=== PATIENT | male | born 1980 | race Caucasian/White ===

== ENCOUNTER 2018-05-26 05:20 | Emergency (ER) | payer MEDICAID, SELFPAY ==
[2018-05-26 05:21] VITALS: BP 134/92; PULSE 80; RESP 24; TEMP 36.8; O2SAT 98; BMI 26.6
--- NOTE | 2018-05-26 05:39 | ED.DCSUM_ITS ---
- ER Visit Summary Date of Service: 05/26/18 Chief Complaint: Sore throat History of Present Illness: The patient is a 38 M who presents with a sore throat. He woke up with a sore throat 30 minutes ago. He has had sick contacts with mononucleosis. He also complains of 30 minutes of congestion rhinorrhea and cough. No fevers. No vomiting or diarrhea. Physical Examination: Afebrile vitals are normal Posterior oropharyngeal erythema without tonsillar enlargement asymmetry or exudate, the uvula is midline Neck is supple without tender lymphadenopathy Tympanic membranes are normal Heart regular rate and rhythm Lungs clear Test Results: Not indicated Emergency Department Course and Treatment: History and presentation are consistent with a viral pharyngitis. Patient was given ibuprofen and instructed on supportive care. Treatment Plan: [] Disposition: Discharge Impression: Pharyngitis This note was generated with [employer] dictation software. It may contain incorrect words, spelling, and punctuation that were not noted in review of the chart prior to signing ED Disposition - Plan for ED Patient: Chief Complaint: Sore Throat Referrals: Anum Kahn [Primary Care Provider] -
--- NOTE | 2018-05-26 05:39 | ED.DEP ---
ED Disposition - Plan for ED Patient: Chief Complaint: Sore Throat Instructions: ED Pharyngitis Viral Referrals: Anum Kahn [Primary Care Provider] -
[2018-05-26] MEDS: Ibuprofen 400 MG Tablet 800 MG PO (05:49)
[2018-05-26 05:50] VITALS: RESP 16
== END 2018-05-26 05:51 | disposition home or self-care (01) ==
LOC: ED 05:46
PROVIDERS: Emergency Provider Emergency Medicine
DX: J02.9 Acute pharyngitis, unspecified (principal); Z72.0 Tobacco use
CPT/HCPCS: 99283

== ENCOUNTER 2018-12-07 08:48 | Emergency (ER) | payer OTHER, MEDICAID, SELFPAY ==
[2018-12-07 08:50] VITALS: BP 144/88; PULSE 73; RESP 18; TEMP 36.6; O2SAT 98; BMI 27.3
--- NOTE | 2018-12-07 09:15 | ED.VISSUMM ---
- ER Visit Summary Date of Service: 12/07/18 Chief Complaint: Left shoulder injury History of Present Illness: The patient is a 38 M hand dominant. No dyspnea past medical or surgical history. 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 And injured his left shoulder. Said this occurred approximately 6 days ago. Around last Thursday. He denies any fall. No other trauma. He is right-hand dominant. He is never had any surgery or prior history to his left shoulder. He states they put him on light duty but he still having significant pain in the shoulder. Denies any fever or redness. Physical Examination: Well-appearing young male. Vital signs are stable. Afebrile. No acute distress. H EENT exam unremarkable. Neck nontender. Lungs clear to auscultation bilaterally. Heart regular rate and rhythm no murmur. Chest wall nontender. Abdomen soft nontender. Normal bowel sounds no peritoneal signs. Extremities moving all 4. Neurovascularly intact. Specifically he has mild pain to palpation of the shoulder primarily of the posterior shoulder musculature in the upper back. Consistent with a myofascial strain. There is no gross bony deformity. There is no redness, warmth or swelling to the left shoulder. He has normal range of motion to the left shoulder. Including AB and adduction. Internal and external rotation. Elbow has normal range of motion of flexion-extension. Is nonswollen nontender. Left wrist is nonswollen and nontender with normal range of motion. 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 Normal sensation. Normal radial pulse. Normal motor strength of the left upper extremity. Test Results: None Emergency Department Course and Treatment: I discussed with the patient that plain films would not be of any benefit. He does not have a dislocation. There is no reason to believe he has a broken bone in his shoulder joint. His exam and history are consistent with a myofascial strain. However this is not improving he would need further evaluation to rule out any type of internal derangement and may or may not need an MRI Treatment Plan: Naprosyn for pain. Ice. Rest. Continue light duty. Follow-up with [facility] Disposition: Discharge Impression: Acute left shoulder injury at work and consistent with left shoulder strain Worker's Comp. This note was generated with Dragon dictation software. It may contain incorrect words, spelling, and punctuation that were not noted in review of the chart prior to signing ED Disposition - Plan for ED Patient: Chief Complaint: Upper Extremity Injury Referrals: Care Physician,No Primary [Primary Care Provider] -
--- NOTE | 2018-12-07 09:19 | ED.DEP ---
ED Disposition - Plan for ED Patient: Disposition: Home or Assisted Living Chief Complaint: Upper Extremity Injury Instructions: ED Sprain Shoulder Prescriptions: Naproxen [Naprosyn] 500 mg PO BID PRN PRN #20 tab PRN Reason: Pain Referrals: [facility] [GROUP OF PHYSICIANS] - As soon as possible Additional Instructions: Ice to left shoulder. Rest and light duty. Naprosyn or Motrin for pain not both. Follow-up with [facility] if not improving. Your exam and history are consistent with a shoulder strain of the musculature. This is not improving you may need further evaluation.
== END 2018-12-07 09:31 | disposition home or self-care (01) ==
PROVIDERS: Emergency Provider Emergency Medicine
DX: S46.912A Strain of unspecified muscle, fascia and tendon at shoulder and upper arm level, left arm, initial encounter (principal); X58.XXXA Exposure to other specified factors, initial encounter; Y93.89 Activity, other specified; Y99.0 Civilian activity done for income or pay; Z72.0 Tobacco use
CPT/HCPCS: 99282

== ENCOUNTER → 2018-12-17 06:24 | Outpatient (CLI) | payer OTHER, SELFPAY ==
[2018-12-13 08:28] VITALS: BMI 27.3
--- NOTE | 2018-12-17 06:26 | MRI_ITS ---
STUDY: MRI LEFT SHOULDER REASON FOR EXAM: Left shoulder pain for 2 weeks status post lifting injury. TECHNIQUE: Standardized fat and water weighted pulse sequences were obtained in all 3 orthogonal planes. COMPARISON: None. FINDINGS: Normal supraspinatus tendon. Normal infraspinatus tendon. Normal subscapularis tendon. Normal teres minor tendon. Normal supraspinatus muscle. Normal infraspinatus muscle. Normal subscapularis muscle. Normal teres minor muscle. Normal glenohumeral articulation. Normal humeral head and visualized proximal humerus. Normal biceps labral complex. Normal intracapsular long biceps tendon. Normal labrum. Normal capsulo- ligamentous complex. Normal acromioclavicular articulation. There is a Type II morphology (curved), with a neutral orientation. There is no subacromial-subdeltoid bursal fluid. Normal visualized coracohumeral and coracoacromial ligaments. Normal deltoid muscle. Normal trapezius muscle. MRI/Upper Ext Joint Only(Routine) IMPRESSION: Normal MRI of the left shoulder. Electronically Signed: Shahbaz Zimmerman MD at 14:35 EST Tel , Service support ,
--- NOTE | 2018-12-17 06:55 | RAD_ITS ---
STUDY: X-RAY - ORBITS REASON FOR EXAM: Male, 38 years old. This study is being performed as a clearance examination for exclusion of orbital metal, prior to the performance of an MRI examination. TECHNIQUE: 2 view(s) of the orbits were obtained. COMPARISON: None. FINDINGS: Normal bilateral orbits without a metallic orbital foreign body. Normal visualized facial bones. Normal paranasal sinuses. The soft tissue structures are unremarkable. RAD/Orbits for Foreign Body IMPRESSION: No demonstrated metallic orbital foreign body. The patient is cleared for an MRI examination. Electronically Signed: Sumit Christian MD at 7:07 EST , Service support ,
--- OUTSIDE RECORDS SUMMARY | 2019-02-20 14:03 | XMS RPT_ITS ---
:1980 Author Organization OHIP Care Team Providers Name Role Phone Primay Care Physicia, No Primary Care Unavailable Bentley White Attending Unavailable Parveen Barboza Attending Unavailable Primay Care Physicia, No Referring Unavailable Parveen Barboza Attending Unavailable Parveen Barboza Referring Unavailable Primay Care Physicia, No Primary Care Unavailable Parveen Barboza Attending Unavailable Primay Care Physicia, No Referring Unavailable Jose Monae Attending Unavailable Primay Care Physicia, No Primary Care Unavailable PROBLEMS PROBLEMS No Problem Records FoundPROCEDURES PROCEDURES No Procedure Records FoundRESULTS RESULTS URGENT CARE VISIT Observed: 12/21/2018 Status: F Source: [place] RE[place] 10:27 AM [facility] REPOSITORY [facility] [address] [place] [address] OFFICE VISIT Date of Service: 12/21/18 MR#: [id number] Acct: [id number] Name: BRAD GABRIEL Rep #: [id number] : 1980 Provider: Parveen MILLER Age/Sex: 38/M Location: [facility] Status: Signed Intake Vital Signs12/21/18 Body Mass Index (BMI) 27.3 12/21/18 Height 5 ft 9 in 12/21/18 Weight: 161 lb 12/21/18 Body Mass Index (BMI) 23.8 12/21/18 Blood Pressure 134/82 H Intake Visit Reasons: Workers' Comp Px Chief Complaint: Left shoulder 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 Patient has been on restrictions due to left shoulder strain and has since received an MRI of the left shoulder. MRI revealed no abnormalities of the left shoulder. Patient states today that he continues to have an aching pain to the left shoulder and localizes it to the anterior of the same. He denies numbness/tingling or loss of range of motion to the left arm or shoulder. No other associated symptoms or alleviating/aggravating factors. ROS Const Constitutional: Positive for other (Full ROS completed with pertinent findings in the HPI otherwise negative.) Exam Const General: cooperative, healthy appearing Musc Musculoskeletal: Yes joint tenderness; no decreased ROM, joint redness or joint warmth Skin General: no rashes or lesions noted Neuro General: alert, CN's II-XI intact bilaterally Extrem General: full ROM, normal capillary refill, normal exam except as noted, no joint enlargement Other: Tenderness to palpation over the anterior left shoulder. Negative Apley scratch test or crossarm test. Psych Appearance: grossly normal Mental Status: mental status grossly normal Assessment AND Plan Problems 1. Strain of unspecified muscle, fascia and tendon at shoulder and upper arm level, left arm, initial encounter S46.082A Plan [employer] 14 filled out releasing patient back to work today with restrictions at the patient's request. Patient advised that he should start physical therapy as his MRI was negative. The form C9 has already been submitted for approval of this. Patient advised to continue with naproxen as prescribed previously as needed for pain as well as warm compress to the area. Patient advised to follow-up in this office on 12/31/2018 for reevaluation or sooner should his symptoms worsen or he develop any new concerns. He is also been advised of potential red flags and when appropriate to report to the ED. Patient verbalized understanding and agreement with all the above. Coding Level of Care Code Off vis,est,level 3 Diagnoses Strain of unspecified muscle, fascia and tendon at shoulder and upper arm level, left arm, initial encounter S46.912A 12/21/18 1027 <Electronically signed by Parveen MILLER> Date Parveen MILLER Cosigner Signature: Date (if applicable) CC: ORBITS FOR FOREIGN Observed: 12/17/2018 Status: F Source: [place] 6:51 AM [facility] REPOSITORY [facility] Imaging Services [address] [place] [address] Orbits for Foreign Body MR#: [id number] Acct: [id number] Name: BRAD GABRIEL Rep #: [id number] : 1980 M 38 From: Sumit Christian PCP: Care Physician, No Primary Status: REG CLI Study: Orbits for Foreign Body Date of Exam: 12/17/18 Exam# [id number] Ordering Dr: Parveen Barboza STUDY: X-RAY - ORBITS REASON FOR EXAM: Male, 38 years old. This study is being performed as a clearance examination for exclusion of orbital metal, prior to the performance of an MRI examination. TECHNIQUE: 2 view(s) of the orbits were obtained. COMPARISON: None. FINDINGS: Normal bilateral orbits without a metallic orbital foreign body. Normal visualized facial bones. Normal paranasal sinuses. The soft tissue structures are unremarkable. RAD/Orbits for Foreign Body IMPRESSION: No demonstrated metallic orbital foreign body. The patient is cleared for an MRI examination. Electronically Signed: Sumit Christian MD at 7:07 EST , Service support , CC: No Primary Care Physician; Parveen MILLER Criminal Legal Assistant: Signed UPPER EXT JOINT Observed: 12/17/2018 Status: F Source: [place] ONLY(ROUTINE) 6:26 AM [facility] REPOSITORY [facility] Imaging Services [address] [place] [address] Upper Ext Joint Only(Routine) MR#: [id number] Acct: [id number] Name: BRAD GABRIEL Yulia Rep #: [id number] : 1980 M 38 From: Shahbaz Zimmerman MD PCP: Care Physician, No Primary Status: REG CLI Study: Upper Ext Joint Only(Routine) Date of Exam: 12/17/18 Exam# [id number] Ordering Dr: Bryce Winslow STUDY: MRI LEFT SHOULDER REASON FOR EXAM: Left shoulder pain for 2 weeks status post lifting injury. TECHNIQUE: Standardized fat and water weighted pulse sequences were obtained in all 3 orthogonal planes. COMPARISON: None. FINDINGS: Normal supraspinatus tendon. Normal infraspinatus tendon. Normal subscapularis tendon. Normal teres minor tendon. Normal supraspinatus muscle. Normal infraspinatus muscle. Normal subscapularis muscle. Normal teres minor muscle. Normal glenohumeral articulation. Normal humeral head and visualized proximal humerus. Normal biceps labral complex. Normal intracapsular long biceps tendon. Normal labrum. Normal capsulo- ligamentous complex. Normal acromioclavicular articulation. There is a Type II morphology (curved), with a neutral orientation. There is no subacromial-subdeltoid bursal fluid. Normal visualized coracohumeral and coracoacromial ligaments. Normal deltoid muscle. Normal trapezius muscle. MRI/Upper Ext Joint Only(Routine) IMPRESSION: Normal MRI of the left shoulder. Electronically Signed: Shahbaz Zimmerman MD at 14:35 EST Tel , Service support , CC: No Primary Care Physician; Bryce MILLER Criminal Legal Assistant: Signed URGENT CARE VISIT Observed: 12/13/2018 Status: F Source: [place] REPORT 9:40 AM [facility] [address] [place] [address] OFFICE VISIT Date of Service: 12/13/18 MR#: [id number] Acct: [id number] Name: BRAD GABRIEL Rep #: [id number] : 1980 Provider: Parveen MILLER Age/Sex: 38/M Location: [facility] Status: Signed Intake Vital Signs12/13/18 Body Mass Index (BMI) 27.3 12/13/18 Height 5 ft 9 in 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 Chief Complaint: Left shoulder 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 Patient was seen 6 days later at [facility] ED and found to have a left shoulder strain without internal derangement after negative x-rays. Patient states he continues to have pain in the left shoulder region which has not improved or worsened since that time. He describes the pain as a sharp pain made worse with certain movements of the shoulder. He has been taking ibuprofen for the pain however states it only helps moderately. He denies any numbness however does state he has had some pain that travels down his left arm and states that it makes his arm feel like a balloon. He denies any loss in range of motion however states that range of motion exercises do cause him to have pain. He does also report a partial disability due to a cervical spine issue however is unable to describe the exact issue. No other associated symptoms or alleviating/aggravating factors. ROS Const Constitutional: No chills, fever(s), weakness, abnormal sleep pattern or fatigue ENT ENT: No neck pain Resp Respiratory: No shortness of breath, chest congestion, pain with cough or cough Cardio Cardiology: No chest pain at rest, chest pain with exertion or shortness of breath Musc Musculoskeletal: Positive for joint pain, stiffness and radiating pain into limb; no limited range of motion, numbness, tingling, joint swelling or neck pain Skin Skin: No wounds or lesions Neuro Neurology: No weakness, behavioral changes, confusion, numbness or tingling Psych Psychiatric: No behavioral changes, No confusion, No abnormal sleep pattern Endo Endocrine: No fatigue Exam Const General: cooperative, healthy appearing Resp Effort AND Inspection: normal respiratory effort Auscultation: Bilateral: Clear to Auscultation Cardio Palpation: normal PMI Rate: regular rate Rhythm: regular rhythm Musc Musculoskeletal: Yes joint redness; no decreased ROM Skin General: no rashes or lesions noted Neuro General: alert, CN's II-XI intact bilaterally Motor: muscle tone normal throughout, strength 5/5 throughout Sensory Exam: no sensory deficits noted Extrem General: full ROM, normal capillary refill, normal exam except as noted, no joint enlargement Other: Pain to palpation over the superior scapula with several palpable muscle spasms. No obvious deformity upon palpation. Patient able to touch the top of his head with his left arm and has a negative Apley scratch test as well as crossarm test. Psych Appearance: grossly normal Mental Status: mental status grossly normal Assessment AND Plan Problems 1. Strain of unspecified muscle, fascia and tendon at shoulder and upper arm level, left arm, initial encounter S46.912A Status Acute Plan [employer] 14 filled out releasing patient back to work today with restrictions of no pushing/pulling/lifting of greater than 10 pounds and no over shoulder height or below knee level work. Additionally form C9 filled out referring patient to physical therapy. Advised to use ibuprofen or Tylenol lili-cap-dtujgmu unless contraindicated as needed for pain relief per patient advised to follow-up in this office on 12/24/2018 for reevaluation or sooner should his symptoms worsen or any new concerns develop. He is also been advised of potential red flags and when appropriate to report to the ED. Patient verbalized understanding and agreement with all the above. Coding Level of Care Code Off vis,new,level 3 Diagnoses Strain of unspecified muscle, fascia and tendon at shoulder and upper arm level, left arm, initial encounter S46.912A 12/13/18 0940 <Electronically signed by Parveen MILLER> Date Parveen MILLER Cosigner Signature: Date (if applicable) CC: EMERGENCY DEPARTMENT Observed: 12/07/2018 Status: F Source: [place] SUMMARY 4:47 PM [facility] REPOSITORY [facility] Medical Records Department [address] [place] [place] [address] Emergency Department Summary 12/07/18 0915 MR#: [id number] Acct: [id number] Name: BRAD GABRIEL Rep #: [id number] : 1980 38 From: Bentley White MD PCP: Care Physician, No Primary Status: DEP ER - ER Visit Summary Date of Service: 12/07/18 Chief Complaint: Left shoulder injury History of Present Illness: The patient is a 38 M hand dominant. No dyspnea past medical or surgical history. 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 And injured his left shoulder. Said this occurred approximately 6 days ago. Around last Thursday. He denies any fall. No other trauma. He is right-hand dominant. He is never had any surgery or prior history to his left shoulder. He states they put him on light duty but he still having significant pain in the shoulder. Denies any fever or redness. Physical Examination: Well-appearing young male. Vital signs are stable. Afebrile. No acute distress. H EENT exam unremarkable. Neck nontender. Lungs clear to auscultation bilaterally. Heart regular rate and rhythm no murmur. Chest wall nontender. Abdomen soft nontender. Normal bowel sounds no peritoneal signs. Extremities moving all 4. Neurovascularly intact. Specifically he has mild pain to palpation of the shoulder primarily of the posterior shoulder musculature in the upper back. Consistent with a myofascial strain. There is no gross bony deformity. There is no redness, warmth or swelling to the left shoulder. He has normal range of motion to the left shoulder. Including AB and adduction. Internal and external rotation. Elbow has normal range of motion of flexion-extension. Is nonswollen nontender. Left wrist is nonswollen and nontender with normal range of motion. 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 Normal sensation. Normal radial pulse. Normal motor strength of the left upper extremity. Test Results: None Emergency Department Course and Treatment: I discussed with the patient that plain films would not be of any benefit. He does not have a dislocation. There is no reason to believe he has a broken bone in his shoulder joint. His exam and history are consistent with a myofascial strain. However this is not improving he would need further evaluation to rule out any type of internal derangement and may or may not need an MRI Treatment Plan: Naprosyn for pain. Ice. Rest. Continue light duty. Follow-up with corporate care Disposition: Discharge Impression: Acute left shoulder injury at work and consistent with left shoulder strain Worker's Comp. This note was generated with Better Bean dictation software. It may contain incorrect words, spelling, and punctuation that were not noted in review of the chart prior to signing ED Disposition - Plan for ED Patient: Chief Complaint: Upper Extremity Injury Referrals: Care Physician,No Primary [Primary Care Provider] - What to do if you have Problems For any increased pain, shortness of breath, bleeding, nausea or vomiting, chest pain, or any unexpected problems, contact your Primary Care Provider. Call [facility] ([phone]) or report to the closest Emergency Room. Call 911 if necessary. 12/07/18 1640 <Electronically signed by Bentley White MD> Date Bentley White MD Cosigner Signature (If Indicated): Date CC: No Primary Care Physician DISCHARGE INSTRUCTION Observed: 12/07/2018 Status: F Source: [place] 4:47 PM [facility] REPOSITORY [facility] Medical Records Department [address] [place] [address] Discharge Instruction 12/07/18 0919 MR#: [id number] Acct: [id number] Name: BRAD GABRIEL Yulia Rep #: [id number] : 1980 38 From: Bentley White MD PCP: Mayra Physician, No Primary Status: [facility] ER ED Disposition - Plan for ED Patient: Disposition: Home or Assisted Living Chief Complaint: Upper Extremity Injury Instructions: ED Sprain Shoulder Prescriptions: Naproxen [Naprosyn] 500 mg PO BID PRN PRN #20 tab PRN Reason: Pain Referrals: [facility] [GROUP OF PHYSICIANS] - As soon as possible Additional Instructions: Ice to left shoulder. Rest and light duty. Naprosyn or Motrin for pain not both. Follow-up with [facility] if not improving. Your exam and history are consistent with a shoulder strain of the musculature. This is not improving you may need further evaluation. What to do if you have Problems For any increased pain, shortness of breath, bleeding, nausea or vomiting, chest pain, or any unexpected problems, contact your Primary Care Provider. Call [facility] ([phone]) or report to the closest Emergency Room. Call 911 if necessary. 12/07/18 4667 <Electronically signed by Bentley White MD> Date Bentley White MD Cosigner Signature (If Indicated): Date CC: No Primary Care Physician EMERGENCY DEPARTMENT Observed: 05/26/2018 Status: F Source: [place] SUMMARY 5:39 AM [facility] REPOSITORY [facility] Medical Records Department [address] [place] [address] Emergency Department Summary 05/26/18 0538 MR#: [id number] Acct: [id number] Name: BRAD GABRIEL Rep #: [id number] : 1980 38 From: Jose Monae MD PCP: Anum Kahn Status: PRE ER - ER Visit Summary Date of Service: 05/26/18 Chief Complaint: Sore throat History of Present Illness: The patient is a 38 M who presents with a sore throat. He woke up with a sore throat 30 minutes ago. He has had sick contacts with mononucleosis. He also complains of 30 minutes of congestion rhinorrhea and cough. No fevers. No vomiting or diarrhea. Physical Examination: Afebrile vitals are normal Posterior oropharyngeal erythema without tonsillar enlargement asymmetry or exudate, the uvula is midline Neck is supple without tender lymphadenopathy Tympanic membranes are normal Heart regular rate and rhythm Lungs clear Test Results: Not indicated Emergency Department Course and Treatment: History and presentation are consistent with a viral pharyngitis. Patient was given ibuprofen and instructed on supportive care. Treatment Plan: [] Disposition: Discharge Impression: Pharyngitis This note was generated with Better Bean dictation software. It may contain incorrect words, spelling, and punctuation that were not noted in review of the chart prior to signing ED Disposition - Plan for ED Patient: Chief Complaint: Sore Throat Referrals: Anum Kahn [Primary Care Provider] - What to do if you have Problems For any increased pain, shortness of breath, bleeding, nausea or vomiting, chest pain, or any unexpected problems, contact your Primary Care Provider. Call [facility] ([phone]) or report to the closest Emergency Room. Call 911 if necessary. 05/26/18 0539 <Electronically signed by Jose Monae MD> Date Jose Monae MD Cosigner Signature (If Indicated): Date CC: Anum Kahn DISCHARGE INSTRUCTION Observed: 05/26/2018 Status: F Source: [place] 5:39 AM [facility] Medical Records Department [address] [place] [address] Discharge Instruction 05/26/18 0539 MR#: [id number] Acct: [id number] Name: HARVEYBRAD C Rep #: [id number] : 1980 38 From: Jose Monae MD PCP: Anum Kahn Status: PRE ER ED Disposition - Plan for ED Patient: Chief Complaint: Sore Throat Instructions: ED Pharyngitis Viral Referrals: Anum Kahn [Primary Care Provider] - What to do if you have Problems For any increased pain, shortness of breath, bleeding, nausea or vomiting, chest pain, or any unexpected problems, contact your Primary Care Provider. Call [facility] ([phone]) or report to the closest Emergency Room. Call 911 if necessary. 05/26/18 0539 <Electronically signed by Jose Monae MD> Date Jose Monae MD Cosigner Signature (If Indicated): Date CC: [place] [facility] ALLERGIES ALLERGIES DATE TYPE / CODE NAME / CODE REACTION SEVERITY SOURCE 12/21/2018 Drug Penicillins/ Hives Unknown [facility] Allergy/4160 [id number]([facility] [address](SNOMED XNORM) Repository CT) ENCOUNTERS ENCOUNTERS ADMIT/DISCHARGE ACCOUNT ADMITTING ENCOUNTER LOCATION SOURCE NUMBER CLASS 12/21/2018/ [id number] Ambulatory BMSBuilding:B [place] 9 1 [facility] Repository 12/17/2018 [id number] Ambulatory [place] 8 [facility] ing:MRI Repository 12/13/2018/ [id number] Ambulatory BMSBuilding:B [place] 9 6 [facility] Repository 12/07/2018/ [id number] Emergency [place] 9 3 [facility] ing:ED Repository 05/26/2018/ [id number] Emergency [place] 8 5 [facility] ing:ED Repository PAYERS PAYERS ENCOUNTER GUARANTOR PAYER SUBSCRIBER SOURCE 12/21/2018 BRAD C Primary BRAD C [place] [id number] Insurance:SELF INS JOHNSONDOB: [facility] [id number] Number: Repository [address]Pjw: [phone] [id number] [phone] () Date:8422-63-50GWRVSisi [address] [place] [address]UX: 12/21/2018 Secondary NOT GIVENUNK [place] Insurance:SELF PAY [facility] Number: Effective Repository Date:2018-12-21 12/17/2018 BRAD C Primary NOT GIVENUNK [place] [id number] Insurance:SELF PAY [facility] [address] Number: Effective Repository [id number]: ([phone]) Date:2018-12-14 [phone] () 12/13/2018 BRAD C Primary Insurance:[facility] BRAD C [place] [id number] [facility] JOHNSONDOB[facility] Number: [id number] [id number] Repository [address]Rmy: (330) Date:2601-59-26[phone] () [address] [place] [address]NF: 12/13/2018 Secondary NOT GIVENUNK [place] Insurance:SELF PAY [facility] Number: Effective Repository Date:2018-12-13 12/07/2018 BRAD C Primary BRAD C Etri [id number] Insurance:SELF INS JOHNSONDOB: [facility] [id number] Number: Repository [address]Hql: [phone] [id number] () Date:2701-10-50ZYQC CARLOS [address] [place] [address]GX: 12/07/2018 Secondary BRAD C [place] Insurance:[facility] JOHNSONDOB: [facility] [id number] Hospital Number: Repository [id number] Date:6964-42-31TB [address] [address]HM: 12/07/2018 Tertiary NOT GIVENUNK [place] Insurance:SELF PAY [facility] Number: Effective Repository Date:2018-12-07 05/26/2018 BRAD C Primary Insurance:[facility] BRAD C Te[place] [id number] [facility] JOHNSONDOB: [facility] Number: [id number] [id number] Repository [address]Grp: (330) Date:0679-28-47JH [phone] () [address], [place] [address]RZ: 05/26/2018 Secondary NOT GIVENUNK [place] Insurance:SELF PAY [facility]: Effective Repository Date:2018-05-26
== END ==
PROVIDERS: Referring Provider Physician Assistant Surgical; Visit Provider Physician Assistant Surgical
DX: S46.912A Strain of unspecified muscle, fascia and tendon at shoulder and upper arm level, left arm, initial encounter (principal)
CPT/HCPCS: 70030; 73221

== ENCOUNTER 2020-01-12 19:12 | Emergency (ER) | payer MEDICAID, SELFPAY ==
[2018-12-21 10:01] VITALS: BMI 27.3
[2020-01-12 19:13] VITALS: BP 146/97; PULSE 68; RESP 16; TEMP 36.7; O2SAT 98; BMI 25.0
--- NOTE | 2020-01-12 19:31 | CT_ITS ---
STUDY: CT ABDOMEN AND PELVIS WITHOUT CONTRAST REASON FOR EXAM: Male, 39 years old. RT RAFAEL-UMBILICAL ABD PAIN RADIATION DOSAGE (If Supplied By Facility): CTDIvol = ( 12.54 ) mGy, DLP = ( 566.12 ) mGycm TECHNIQUE: Transaxial images were obtained from the dome of the diaphragm to the symphysis pubis without oral contrast, and without intravenous contrast. Sagittal and coronal images were reconstructed. Individualized dose optimization techniques were used for this CT. COMPARISON: None. FINDINGS: The visualized lung bases are unremarkable. The visualized portions of the heart are within normal limits. There is decreased attenuation of the liver consistent with steatosis. The gallbladder is contracted. There is a benign calcified granuloma of the spleen. Normal pancreas. Normal bilateral adrenal glands. Normal right kidney. Normal left kidney. Normal visualized stomach. Normal small intestine. Normal colon. There is non-visualization of the appendix. Normal abdominal aorta. Normal inferior vena cava. Normal retroperitoneum. Normal urinary bladder. Normal visualized prostate gland. Normal abdominal wall. Normal osseous structures. CT/Abdomen/Pelvis W IV Cont ONLY IMPRESSION: No acute process is identified. Electronically Signed: Dayne Draper, at 20:39 EST Tel , Service support ,
--- NOTE | 2020-01-12 19:33 | ED.VISSUMM ---
- ER Visit Summary Date of Service: 01/12/20 Chief Complaint: Abdominal pain History of Present Illness: The patient is a 39 M past medical or surgical history. Patient states that today he had gradual onset of right periumbilical abdominal pain. Mild nausea. No vomiting. No diarrhea. No constipation. No fever. No dysuria. No abdominal trauma. No prior abdominal surgeries. He said after he started getting the onset of discomfort he was reading things about this and was concerned he might have developed a hernia. He has not seen a lump or mass. He denies any weight loss. Physical Examination: Middle-aged male no acute distress vital signs are stable afebrile. H EENT exam unremarkable. Moist his membranes. Neck nontender no lymphadenopathy. Lungs clear to auscultation bilaterally. Heart regular rhythm no murmur rate about 70. Abdomen is soft. Nondistended. Normal bowel sounds. No peritoneal signs. No signs of obstruction. Both the right upper and right lower quadrants are unremarkable. Just to the right of his umbilicus about 9:00 there is tenderness possibly a small hernia but is not incarcerated or strangulated. Left upper and lower quadrants are unremarkable. Moving all 4 extremities. No edema. Back nontender. Neurologically is awake and alert with no focal motor deficits. Test Results: BC normal white count of 6. Hemoglobin 15. Electrolytes unremarkable normal creatinine gap. Liver enzymes normal. CT abdomen pelvis read by the radiologist shows no acute abnormality. Increased colonic stool. Appendix not visualized. But no inflammation. Emergency Department Course and Treatment: Patient was offered pain and/or nausea meds and deferred both at this time. Right periumbilical abdominal pain. Hernia versus other etiology. CT and labs. Treatment Plan: Repeat exam is doing well at 2049. Abdomen benign. He and I discussed differential diagnosis and need for follow-up. Disposition: Discharge Impression: Right periumbilical abdominal pain of uncertain etiology Rule out periumbilical hernia This note was generated with [employer] software. It may contain incorrect words, spelling, and punctuation that were not noted in review of the chart prior to signing ED Disposition - Plan for ED Patient: Referrals: Care Physician,No Primary [NON-STAFF] -
[2020-01-12 19:45] LABS: Absolute Lymphocyte Count 2.27 X10^3/uL (0.83-4.51); Basophil# 0.08 X10^3/uL; Basophil% 1.3 % (0-1); Eosinophil# 0.23 X10^3/uL; Eosinophils% 3.6 % (0-5); Hematocrit 44.6 % (40-54); Hemoglobin 15.4 g/dL (13.0-16.5); Lymphocyte # 2.27 X10^3/ul (4.0); Mean Corp Hgb Conc 34.5 g/dL (32-36); Mean Corpuscular Hgb 31.4 pg (27.0-32.0); Mean Corpuscular Volume 90.8 fL (80-94); Mean Platelet Vol. 10.3 fl (6.2-12.0); Monocyte% 11.1 % (0-10); NRBC Flagged by Analyzer 0 % (0-5); Neutrophil # 3.01 X10^3/uL (2.7-7.7); Neutrophil % 47.7 % (47-70); Platelet Count 201 K/mm3 (150-450); RBC Distribution Width CV 13.8 % (11.6-14.6); RBC Distribution Width SD 46.1 fl (35.1-43.9); Red Blood Count 4.91 M/mm3 (4.6-6.2); White Blood Count 6.3 K/mm3 (4.4-11.0)
[2020-01-12 20:04] LABS: AST(SGOT) 26 U/L (15-37); Alanine Aminotransfer ALT/SGPT 24 U/L (16-61); Alkaline Phosphatase 49 U/L (45-117); Anion Gap 5 (5-15); BUN 8 mg/dL (7-18); BUN/Creat Ratio 9.6 RATIO (10-20); Bilirubin, Direct 0.29 mg/dL (0.00-0.30); Calcium,Total 9.3 mg/dL (8.5-10.1); Chloride 109 mmol/L (98-107); Creatinine, Serum 0.84 mg/dL (0.70-1.30); EST Glomerular Filtration Rate 108 mL/min (>60); Est Glom Filt Rate - Afr Amer 130 mL/min (>60); Globulin 3.8 g/dL (2.2-4.2); Glucose 106 mg/dL (74-106); Potassium 3.4 mmol/L (3.5-5.1); Protein, Total 7.8 g/dL (6.4-8.2); Sodium Level 139 mmol/L (136-145)
--- NOTE | 2020-01-12 20:53 | ED.DEP ---
ED Disposition - Plan for ED Patient: Disposition: Home or Assisted Living Instructions: ABDOMINAL PAIN, Unkown Cause, (Male) Referrals: Danisha Zambrano MD [STAFF PHYSICIAN] - 10-14 Days if not better Additional Instructions: Tylenol and/or Motrin for pain. Your labs and CAT scan were unremarkable. There is no obvious hernia. You still may have a hernia but this was not seen on her test. If this is not improving you can follow-up to the surgeon I referred you to Dr. Danisha castelan for further evaluation.
[2020-01-12 21:01] VITALS: RESP 16
== END 2020-01-12 21:03 | disposition home or self-care (01) ==
PROVIDERS: Emergency Provider Emergency Medicine; PCP Family Medicine
DX: R10.33 Periumbilical pain (principal); R11.0 Nausea; F17.210 Nicotine dependence, cigarettes, uncomplicated
CPT/HCPCS: 74177; 80048; 80076; 85025; 99283; Q9967; A4216

== ENCOUNTER 2020-04-03 09:27 | Day surgery (SDC) | payer MEDICAID, SELFPAY ==
[2020-01-19 08:46] VITALS: BMI 25.0
--- NOTE | 2020-01-19 10:33 | HP_ITS ---
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 Required: No Is patient in pain?: No Allergies Penicillins Allergy (Verified 01/19/20 08:44) Hives Medications Naproxen [Naprosyn] 500 mg PO BID PRN PRN #20 tab 12/07/18 [Rx Confirmed 01/19/20] albuterol sulfate 90 mcg/actuation breath activated powder inhaler 2 inh INHALATION Q6H PRN 01/19/20 [History Confirmed 01/19/20] fluticasone propionate 50 mcg/actuation nasal spray,suspension 1 spray INTRANASAL TID ml 01/19/20 [History Confirmed 01/19/20] PFSH Medical History Abdominal pain (Acute) Arthritis (Acute) Back pain (Acute) Nausea (Acute) Neck pain (Acute) Surgical History (Updated 01/19/20 @ 08:42 by Edna Collins) history varicose vein ligation shaft of penis (Acute) Family History (Updated 01/19/20 @ 08:42 by Edna Collins) Father Asthma Heart disease Sister Bleeding disorder Social History (Updated 01/19/20 @ 10:33 by Danisha Zambrano MD) Smoking Status: Never smoker alcohol intake: current details: Drinks beer daily HPI HPI HPI: BRAD GABRIEL, is a 39 M who presents to the office today for HPI HPI Surgical H&P: Yes HPI: BRAD GABRIEL, is a 39 M who presents to the office today for umbilical hernia. Patient states he noticed it on as he was having pain at that site and noticed a bulge. Patient did go to the ER CT abdomen pelvis was done which did also show a small hernia at the umbilicus. Patient states currently it is only about a dull ache which is a 1/10 but if he coughs and get worse up to a 4/10. Patient is tolerating diet having bowel function. ROS General General: No weight change, fatigue, colon cancer, breast cancer or weakness HEENT HEENT: No difficulty swallowing, eye injury, eye surgery, swollen glands or hoarseness Endo Endocrine: No thyroid disease, diabetes mellitus, thyroid cancer, Hair loss, heat intolerance or cold intolerance Skin Skin: No rash or changing moles Breast Breast: No left breast lump, right breast lump, nipple discharge, breast pain, abnormal mammogram, abnormal US or breast enlargement Musc Musculoskeletal: Yes back problems; no arthritis, rheumatoid arthritis, gout or joint pain Cardio Cardiovascular: No murmur, pacemaker, heart disease, atrial fibrillation, high blood pressure, heart attack, heart stent, palpitations, shortness of breat with exertion or chest pain Psych Psychiatric: No depression, anxiety or hearing voices Resp Respiratory: No shortness of breath, No sleep apnea, Yes cough, No COPD, No asthma, No emphysema, No wheezing Gastro Gastrointestinal: Yes abdominal pain, Yes nausea or vomiting, No diarrhea, No constipation, No blood in stool, No acid reflux, No hemorrhoids, No ulcers, No gallbladder problem, No black,tarry stools Jareth Hematologic: No blood thinners, No blood disorders, No bleeding, No anemia, No blood clots Neuro Neurologic: No system reviewed and no additional complaints, except as docu, No as per HPI, No abnormal walking, No abnormal hearing, No abnormal movements, No abnormal speech, No behavioral changes, No burning sensations, No confusion, No seizure-like activity, No unsteadiness, No dizziness, No localized weakness, No frequent falls, No headache(s), No lack of coordination, No loss of vision, No memory loss, No numbness, No other visual disturbances, No radiating pain, No restless legs, No sensory deficit, No fainting, No tingling, No tremor(s), No weakness, No other Exam Const General: cooperative Orientation: oriented x3 Chest Breast Palpation: No nipple discharge Resp Effort & Inspection: normal respiratory effort Cardio Rate: regular rate Heart Sounds: no murmurs GI Inspection: non-distended Palpation: soft, no guarding, hernia (Incarcerated umbilical, no changes to overlying skin), tender periumbilically Assessment & Plan Problems 1. Umbilical hernia, incarcerated K42.[address] abdomen pelvis did show that the hernia was incarcerated with fat unable to reduce in office as patient probably would not allow me to attempt due to discomfort as well. Patient is tolerating diet having bowel function. Plan to do an umbilical herniorrhaphy with possible mesh. Reviewed the procedure with the patient including the risks, including but not limited to infection, bleeding, injury to the small bowel, and recurrence. All questions were answered. Also, discussed risk of strangulated bowel. Cautioned the patient that if he has N/V, ABD distention, increased umbilical pain or changes of the skin over the hernia he needs to go to the ER. Patient no further questions this time. Danisha Zambrano M.D. Pager: [phone] [facility] [address] [place] [address], [address] [place] [address] Office: [phone] Plan Detail Follow Up We will schedule umbilical hernia repair with possible mesh Coding Level of Care Code Off vis,new,level 3 Diagnoses Umbilical hernia, incarcerated K42.0 01/19/20 1033 <Electronically signed by Danisha Diehl am, MD> Date _ Danisha Zambrano MD
--- NOTE | 2020-04-03 09:33 | EKG12_ITS ---
Test Reason : PRE OP Blood Pressure : / mmHG Vent. Rate : 063 BPM Atrial Rate : 063 BPM P-R Int : 150 ms QRS Dur : 090 ms QT Int : 432 ms P-R-T Axes : 066 -22 -01 degrees QTc Int : 442 ms Normal sinus rhythm Normal ECG When compared with ECG of 19-JUN-2011 22:55, No significant change was found Confirmed by BRADLEY KNAPP ([id number]), editor farm journal AAYUSH SPENCER ([id number]) on 04/05/2020 3:16:24 PM Referred By: Danisha Zambrano Confirmed By:BRADLEY KNAPP
[2020-04-03 09:48] VITALS: BP 118/76; PULSE 58; RESP 16; TEMP 36.6; O2SAT 95; BMI 23.9
[2020-04-03] MEDS: Lactated Ringers 1,000 ML 100 ML IV ×2 (10:04→11:30)
[2020-04-03 10:12] LABS: Prothrombin Time (Protime)PT. 12.4 SECONDS (11.7-14.9)
[2020-04-03 10:13] LABS: Partial Thromboplast Time 32.5 Seconds (24.1-36.2)
--- NOTE | 2020-04-03 10:16 | PCM.HP.STD ---
History of Present Illness Date of Admission: 04/03/20 The patient is a 39 year old M presents due to incarcerated umbilical hernia. Patient noticed this back in December however due to COVID his surgery was delayed. Patient states pains been about a 4/10 off and on. Patient denies being able to push back in the bulge. Patient is tolerating diet and having bowel function. Patient does state that he does do some heavy lifting at work. Past Medical History Medical History: Medical History (Last Reviewed 01/19/20 @ 08:41 by Edna Collins) Abdominal pain R10.9 Arthritis M19.90 Back pain M54.9 Nausea R11.0 Neck pain M54.2 Allergies Penicillins Allergy (Verified 04/03/20 09:47) Hives Home Medications: Ambulatory Orders Medication Instructions Recorded Naproxen [Naprosyn] 500 mg PO BID PRN PRN #20 tab 12/07/18 albuterol sulfate 90 mcg/actuation 2 inh INHALATION Q6H PRN 01/19/20 breath activated powder inhaler fluticasone propionate 50 1 spray INTRANASAL TID ml 01/19/20 mcg/actuation nasal spray,suspension Surgical History: Surgical History (Last Updated 01/19/20 @ 08:42 by Edna Collins) history varicose vein ligation shaft of penis Smoking Status: Current every day smoker Tobacco Use: Cigarettes Review of Systems Constitutional: Denies: Anorexia Gastrointestinal: Reports: Abdominal Pain. Denies: Constipation, Nausea, Vomiting VTE Information - Inpt Only VTE Present on Admission: Yes VTE Mechan Device Prophylaxis: SCD's - Physical Exam Vitals/I&O's: Vital Signs Temp Pulse Resp BP Pulse Ox 97.9 F 58 L 16 118/76 95 04/03/20 09:48 04/03/20 09:48 04/03/20 09:48 04/03/20 09:48 04/03/20 09:48 Oxygen Delivery Method Room Air Weight: 157 lb 6.561 oz Body Mass Index (BMI) 23.9 General: Alert, Oriented x3, Cooperative, No apparent distress HEENT: Atraumatic Lungs: Normal air movement Cardiovascular: Regular rate Abdomen: Soft, Non-Distended, Tender - Near umbilicus, no peritoneal signs, Hernia - Incarcerated umbilical hernia, no changes to overlying skin Extremities: No clubbing, No cyanosis, No edema Neurological: Cranial nerves II-XII grossly intact Psych/Mental Status: Normal Affect Laboratory Results 04/03/20 09:52: PT 12.4, INR 1.0, APTT 32.5 Current Medications Lactated Ringer's () 1,000 mls @ 100 mls/hr IV .Q10H BABATUNDE Last Admin: 04/03/20 10:04 Dose: 100 mls/hr Documented by: Assessment/Plan All Active Problems (Last Reviewed 01/19/20 @ 08:41 by Edna Collins) Strain of unspecified muscle, fascia and tendon at shoulder and upper arm level, left arm, initial encounter (Acute) 39-year-old male with an incarcerated umbilical hernia Plan to do an umbilical herniorrhaphy with possible mesh. Reviewed the procedure with the patient including the risks, including but not limited to infection, bleeding, injury to the small bowel, and recurrence. All questions were answered. Patient no further questions this time. Danisha Zambrano M.D. Pager: [phone] [facility] [address] [place] [address] [address] [place] [address] Office: [phone]
[2020-04-03] MEDS: Bupivacaine Mpf 0.5% 30 ML VIAL (11:29)
--- NOTE | 2020-04-03 11:30 | PCM.OPRPT ---
Report of Operation Date of Procedure: 04/03/20 Pre-Operative Diagnosis: Incarcerated umbilical hernia Post-Operative Diagnosis: Incarcerated ventral hernia x2 Surgery/Procedure Performed:: Incarcerated ventral hernia repair with mesh trauma surgeon: Luigi Elliott Type of Anesthesia:: General/Supplemental Anesthesiologist: Keagan Leyva Special Medications: Clindamycin 900 mg IV x1 Specimen's removed: None Estimated Blood Loss (mL): < 10 cc Fluids Replaced: 1000 cc Description of Procedure: Patient was brought into the room placed supine on the operating table. Correct patient, procedure, site, positioning, special, was verified prior to procedure. General anesthesia was induced. The abdomen was prepped draped in usual sterile fashion. A curvilinear incision was made below the umbilicus with a 15 blade scalpel. This was deepened with electrocautery. A hemostat was used to go around the stalk of the umbilicus and Metzenbaum scissors was used to carefully divide the hernia sac from the skin of the umbilicus. The fascia around the hernia defect was cleared and patient was found to have a second smaller superior hernia. These 2 hernias were connected and the hernia defect measured 10 mm x [address] hernia patch-small 4.3 cm diameter (lot [id number] ref [id number]) was chosen the straps were secured with interrupted 1-0 Nurolon suture and 1-0 Nurolon suture was placed to close the fascia in a [id number] also securing the superior and inferior portions of the mesh. The wound was irrigated with saline. Hemostasis was assured. The skin of the umbilicus was secured to the fascia using 3-0 Vicryl sutures interrupted ?2. The incision was closed with 3-0 Vicryl subdermal interrupted sutures and the skin was closed with interrupted 4-0 Monocryl sutures. Steri-Strips and Tegaderm and OpSite were placed over the incision once sterile cotton balls were placed in the umbilicus. Patient was extubated. Patient tolerated procedure well and was taken to the postanesthesia care unit in stable condition. Grafts/Implants Used: ventralex ST hernia patch-small 4.3 cm diameter (lot [id number] ref [id number]) - Complications None
--- NOTE | 2020-04-03 11:35 | DCINST_ITS ---
Discharge Diet: No Restrictions Discharge Activity: May not drive while taking narcotic pain medications. May shower in (days): 5 - Okay to shower tomorrow if the incision is kept clean and dry for 5 days otherwise lower shower and upper sponge bath Lifting Restrictions: No lifting greater than 20 pounds x 2 weeks will gradually advance Call your doctor if your incision/area has: Continuous Slow Oozing, Sudden Increased Bleeding, Increased Pain/ Swelling, Increased Redness, Foul Smelling Discharge, Swelling at the incision site Call your doctor if you observe: Fever of 101 or Higher Remove Dressing in (days):: 5 - Replace cottonball's with either cotton balls or balled up gauze over the umbilicus and a pressure type dressing for the next 2 days for a total of 7 days Additional Dressing/Incision Instructions:: Keep dressing on the bellybutton for 5 days. Keep clean and dry by covering with Ziploc bag with the edges tape for showers. It is okay to remove dressing but would continue to put either a cotton ball or rolled up gauze in the bellybutton with tape over the top to keep the skin of the bellybutton against the fascia for 2 more days. Additional Instructions: Okay to take ibuprofen 400-600 mg PO q6hr PRN along with the hydrocodone/acetaminophen. Avoid Tylenol since there is already Tylenol in the hydrocodone/acetaminophen. Take all pain meds with food. Hydrocodone/acetaminophen can cause constipation recommend taking daily stool softener (i.e. Colace/docusate) while taking the pain meds. Recommend starting some MiraLAX in 1 to 2 days if no bowel movement. If still no bowel movement following day recommend taking magnesium citrate half the bottle and waiting 4-6 hours if still no results take the other half the bottle. Allergies/Adverse Reactions: Allergies Penicillins Allergy (Verified 04/03/20 09:47) Hives Medications to take at Discharge Naproxen [Naprosyn] 500 mg PO BID PRN PRN #20 tab 12/07/18 albuterol sulfate 90 mcg/actuation breath activated powder inhaler 2 inh INHALATION Q6H PRN 01/19/20 fluticasone propionate 50 mcg/actuation nasal spray,suspension 1 spray INTRANASAL TID ml 01/19/20 Hydrocodone Bitart/Apap 5-325 [[place] 5MG-325MG] 1 - 2 tab PO Q6H PRN PRN 4 Days #25 tab 04/03/20 The following prescriptions were given: Hydrocodone Bitart/Apap 5-325 [[place] 5MG-325MG] 1 - 2 tab PO Q6H PRN PRN 4 Days #25 tab PRN Reason: Pain Transmission Status: Received by [facility] Primary Care Physician: Jonn Gonzalez MD [Primary Care Provider] - Test Results: Test results from this visit will be discussed in further detail at your follow- up appointment, if applicable. Please Follow Up With: Danisha Zambrano MD - After 5 PM on the weekends call [phone] with any concerns When: Call the office for a follow-up appointment in 2 weeks Proposed Discharge Date: 04/03/20
[2020-04-03 11:54] VITALS: BP 118/76; BP 138/96; PULSE 69; RESP 16; TEMP 37.8; O2SAT 100
[2020-04-03 12:01] VITALS: BP 118/76; BP 143/98; PULSE 58; RESP 18; O2SAT 100
[2020-04-03 12:16] VITALS: BP 118/76; BP 128/94; PULSE 60; RESP 18; TEMP 37.4; O2SAT 97
[2020-04-03] MEDS: HYDROcodone Bitartrate/Apap 5/325 Tablet PO (12:41)
[2020-04-03 12:53] VITALS: BP 118/76
[2020-04-03 13:27] VITALS: BP 118/76; BP 126/88; PULSE 66; RESP 16; TEMP 37.2; O2SAT 95
== END 2020-04-03 13:36 | disposition home or self-care (01) ==
LOC: SDC 09:27 → AC 09:29
PROVIDERS: Anesthesiology; PCP Family Medicine; Referring Provider Surgery; Visit Provider Surgery
PROC: (CPT 49561; principal; 2020-04-03 10:45)
DX: K43.6 Other and unspecified ventral hernia with obstruction, without gangrene (principal); M19.90 Unspecified osteoarthritis, unspecified site; F17.210 Nicotine dependence, cigarettes, uncomplicated; G25.81 Restless legs syndrome
CPT/HCPCS: 49561; 49568; 36415; 85610; 85730; 93005; J7120; C1781

== ENCOUNTER 2020-10-08 09:41 | Emergency (ER) | payer MEDICAID, SELFPAY ==
[2020-10-08 09:41] VITALS: BP 131/75; PULSE 81; RESP 16; TEMP 36.5; O2SAT 97; BMI 24.4
--- NOTE | 2020-10-08 10:09 | ED.VIS.GI ---
History of Present Illness Chief Complaint: Abd Pain Informant: Patient - Abdominal Pain/Flank Pain Onset: Weeks - 2 Context: Gradual Onset Timing: Continuous Quality: - - sore w/ lump Location: - - umbilical Current Severity: Moderate Maximum Severity: Moderate Worsened by: Movement - and palpation Relieved by: Nothing - Nausea/Vomiting/Emesis GI Symptom: Negative for: Nausea, Vomiting - Diarrhea/Melena/Hematochezia GI Symptom: - - having BMs w/o difficulty. Negative for: Diarrhea, Melena, Hematochezia Associated Symptoms: Negative for: Dysuria, Frequency, Hematuria, Urgency Narrative: Patient states he had a laparoscopic umbilical herniorrhaphy in March, about 5 months ago, for similar lump and soreness that has recurred about 2 weeks ago. He states the soreness is constant, it is not intermittent. He denies any trouble with bowel movements, or nausea/vomiting. He denies any other complaints. 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 Past Medical History - Allergies and Home Meds Allergies/Adverse Reactions: Allergies Penicillins Allergy (Verified 10/08/20 09:43) [facility] Primary Care Physician: Jonn Gonzalez MD [Primary Care Provider] - Doctors: armond Zambrano Past Medical History: None Surgical History: herniorrhaphy Smoking Status: Current every day smoker Review of Systems General: Denies: Chills, Fever, Sweats Eyes: Denies: Visual changes - bilaterally, Diplopia ENT: Denies: Rhinorrhea, Sore throat Cardiovascular: Denies: Chest pain, Palpitations Respiratory: Denies: Dyspnea, Cough, Dyspnea on exertion Gastrointestinal: Reports: Abdominal pain. Denies: Nausea, Vomiting, Diarrhea, Melena, Hematochezia Genitourinary: Denies: Dysuria, Hematuria, Frequency Musculoskeletal: Denies: Back pain, Extremity Pain Skin: Denies: Rash, Wounds Neurological: Denies: Headache, Weakness, Numbness Physical Exam Vital Signs/Narrative: Vital Signs Temp Pulse Resp BP Pulse Ox 10/08/20 09:41 97.7 F L 81 16 131/75 H 97 Inital Vital Signs reviewed: Yes General: Well nourished, Well developed, No Acute Distress Head: Normocephalic, Atraumatic Eyes: Perrl, EOMI ENT: Moist mucous membranes, No rhinorrhea Neck: Supple, Nontender Cardiovascular: Regular rate, Regular rhythm, No murmurs Respiratory: No distress, CTA bilaterally, Chest nontender Abdomen: Soft, Nondistended, Normal bowel sounds, No masses, Tender - At umbilicus where there is a small lump, that is specifically tender and not erythematous over top. It is just to the right and superior within the umbilicus.. Negative for: Guarding, Rebound tenderness Back: Nontender, Normal Inspection. Negative for: CVA tenderness Extremities: Nontender, No edema. Negative for: Calf Tenderness Skin: Normal color, No rash, No Trauma Neurological: Alert, Oriented x3, Cranial nerves II-XII grossly intact, Normal Strength, Normal Sensation, Normal Gait Psychological: Normal affect, Normal Mood Diagnostic/Tx/Re-eval Impressions Abdomen/Pelvis CT 10/08/20 10:55 IMPRESSION: No acute abnormality is seen. Electronically Signed: Familia Acdiann, at 11:16 EST , Service support , 10/08/20 10:55 CT Abd [Abdomen/Pelvis W IV Cont ONLY] [CT] Stat Laboratory Results 10/08/20 10/08/20 10:20 10:20 WBC 4.4 RBC 5.41 Hgb 16.6 H Hct 49.0 MCV 90.6 MCH 30.7 MCHC 33.9 RDW Std Deviation 45.6 H RDW Coeff of Abraham 13.7 Plt Count 225 MPV 10.3 Immature Gran % (Auto) 0.200 Neut % (Auto) 49.1 Lymph % (Auto) 32.8 [place] % (Auto) 12.0 H Eos % (Auto) 4.3 Baso % (Auto) 1.6 H Absolute Neuts (auto) 2.2 Absolute Lymphs (auto) 1.45 Nucleated RBC % 0 Sodium 141 Potassium 4.1 Chloride 108 H Carbon Dioxide 29.0 Anion Gap 4 L BUN 8 Creatinine 0.71 Estim Creat Clear Calc 132.46 Est GFR (MDRD) Af Amer 157 Est GFR (MDRD) Non-Af 130 BUN/Creatinine Ratio 11.3 Glucose 89 Calcium 9.5 - Medical Decision Making With the patient supine and applying gentle constant pressure to the hernia, I did not feel a sudden pop/reduction, but after some time it did seem to resolve however the patient said it was more painful, not less afterwards. Therefore CT was obtained prior to referring him back to his operative physician. It does show some postsurgical changes in the umbilicus, but no hernia was seen. There clearly is one palpable. On reevaluation after the CT, the patient states that he feels the same after sitting up the lump is there again. I do not think he needs narcotics but I do think referring him back to his surgeon is indicated for clinical reevaluation, he was given that and advised to lie supine with an ice pack for 20 or 30 minutes as indicated to try to get it to help ED Disposition - Plan for ED Patient: Disposition: Home or Assisted Living Diagnosis: Umbilical hernia without obstruction and without gangrene Instructions: ED Hernia Inguinal Referrals: Danisha Zambrano MD [STAFF PHYSICIAN] - As soon as possible (call for appt) Additional Instructions: Lie on your back, relaxing your abdominal muscles, with an ice pack over the painful lump for 20-30 minutes, then you may try to also apply gentle pressure to push the lump back in, this will not cause any danger or problem but may be sore. Continue to put pressure on it, try to keep your abdominal muscles relaxed.
[2020-10-08] MEDS: 0.9% Normal Saline 1,000 ML 999 ML IV (10:24)
[2020-10-08 10:26] LABS: Absolute Lymphocyte Count 1.45 X10^3/uL (0.83-4.51); Absolute Neutrophil Count 2.2 X10^3/uL (2.0-7.7); Basophil# 0.07 X10^3/uL; Basophil% 1.6 % (0-1); Eosinophil# 0.19 X10^3/uL; Eosinophils% 4.3 % (0-5); Hemoglobin 16.6 g/dL (13.0-16.5); Lymphocyte # 1.45 X10^3/ul (4.0); Lymphocyte % 32.8 % (19-41); Mean Corp Hgb Conc 33.9 g/dL (32-36); Mean Corpuscular Hgb 30.7 pg (27.0-32.0); Mean Corpuscular Volume 90.6 fL (80-94); Mean Platelet Vol. 10.3 fl (6.2-12.0); Monocyte# 0.53 X10^3/uL; NRBC Flagged by Analyzer 0 % (0-5); Neutrophil # 2.17 X10^3/uL (2.7-7.7); Neutrophil % 49.1 % (47-70); Platelet Count 225 K/mm3 (150-450); RBC Distribution Width CV 13.7 % (11.6-14.6); RBC Distribution Width SD 45.6 fl (35.1-43.9); Red Blood Count 5.41 M/mm3 (4.6-6.2); White Blood Count 4.4 K/mm3 (4.4-11.0)
[2020-10-08 10:38] LABS: Anion Gap 4 (5-15); BUN 8 mg/dL (7-18); BUN/Creat Ratio 11.3 RATIO (10-20); Calcium,Total 9.5 mg/dL (8.5-10.1); Chloride 108 mmol/L (98-107); Creatinine, Serum 0.71 mg/dL (0.70-1.30); EST Glomerular Filtration Rate 130 mL/min (>60); Est Glom Filt Rate - Afr Amer 157 mL/min (>60); Estimated Creatinine Clearance 132.46 ml/min; Glucose 89 mg/dL (74-106); Potassium 4.1 mmol/L (3.5-5.1); Sodium Level 141 mmol/L (136-145)
--- NOTE | 2020-10-08 10:55 | CT_ITS ---
STUDY: CT ABDOMEN AND PELVIS WITH CONTRAST REASON FOR EXAM: Male, 40 years old. ABDOMINAL PAIN. HX OF UMBILICAL HERNIA REPAIR IN MARCH RADIATION DOSAGE (If Supplied By Facility): CTDIvol = ( 12.66 ) mGy, DLP = ( 595.64 ) mGycm TECHNIQUE: Transaxial images were obtained from the dome of the diaphragm to the symphysis pubis without oral contrast. IV 100mL Isovue-300 was administered. Sagittal and coronal images were reconstructed. Individualized dose optimization techniques were used for this CT. COMPARISON: Comparison is made with prior study dated 01/12/2020. FINDINGS: The visualized lung bases are unremarkable. The visualized portions of the heart are within normal limits. Normal liver. Normal gallbladder and extrahepatic biliary system. Normal spleen. Normal pancreas. Normal bilateral adrenal glands. Normal right kidney. Normal left kidney. Normal visualized stomach. Normal small intestine. Normal colon. The appendix is visualized and appears normal. Normal abdominal aorta. Normal inferior vena cava. Normal retroperitoneum. Normal urinary bladder. Post surgical changes due to local hernia repair. Normal osseous structures. CT/Abdomen/Pelvis W IV Cont ONLY IMPRESSION: No acute abnormality is seen. Electronically Signed: Familia Sanders, at 11:16 EST , Service support ,
== END 2020-10-08 12:48 | disposition home or self-care (01) ==
PROVIDERS: Emergency Provider Emergency Medicine; PCP Family Medicine
DX: K42.9 Umbilical hernia without obstruction or gangrene (principal); F17.200 Nicotine dependence, unspecified, uncomplicated
CPT/HCPCS: 74177; 80048; 85025; 96360; 96361; 99283; J7030; Q9967

== ENCOUNTER → 2021-01-10 09:30 | Outpatient (CLI) | payer MEDICAID, SELFPAY ==
[2021-01-10 12:50] LABS: Cholesterol 170 mg/dL (200); Glucose 83 mg/dL (74-106); High Density Lipoprotein 70 mg/dL; Triglycerides 80 mg/dL; Very Low Density Lipoprotein 16 mg/dL (5-40)
== END ==
PROVIDERS: PCP Family Medicine; Visit Provider Family Medicine
DX: Z82.49 Family history of ischemic heart disease and other diseases of the circulatory system (principal); Z83.3 Family history of diabetes mellitus
CPT/HCPCS: 36415; 80061; 82947

== ENCOUNTER 2022-04-23 08:53 | Emergency (ER) | payer MEDICAID, SELFPAY ==
[2022-04-23 08:54] VITALS: BP 143/90; PULSE 55; RESP 14; TEMP 36.9; O2SAT 99; BMI 25.2
--- NOTE | 2022-04-23 09:00 | CT_ITS ---
INDICATION: umbilical pain -- H/O umbilical hernia repair IN 2019 EXAMINATION: CT ABDOMEN AND PELVIS WITHOUT CONTRAST - CT Abdomen And Pelvis W/O Contrast Injection TECHNIQUE: Helically acquired images were obtained of the abdomen and pelvis without oral or IV contrast. A radiation dose optimization technique was used for this scan. IV Contrast dosage and agent: None. Oral contrast: None. COMPARISON: CT abdomen and pelvis with contrast from 10/08/2020. FINDINGS: Lower thorax: Visualized lung bases are clear. Liver: Unremarkable unenhanced appearance. Gallbladder: Cholelithiasis. No significant bile duct dilation. Spleen: Unremarkable unenhanced appearance. Pancreas: No duct dilation. No acute findings. Adrenal glands: Unremarkable. Kidneys: No nephrolithiasis. No hydronephrosis. Bladder: Somewhat underdistended but no acute findings. GI tract: The bowel is poorly defined without oral or IV contrast. There is an air-filled dilated loop of small bowel in the mid to left upper abdomen which is poorly delineated but measures up to 4.5 cm in width. The remainder of the bowel appears unremarkable. Peritoneum/mesentery/retroperitoneum: No free air or free fluid. No lymphadenopathy. Stable midline hernia repair postoperative changes. Pelvis: No free air or free fluid. No lymphadenopathy. Vasculature: No abdominal aortic or iliac aneurysm. Bones/soft tissues: No acute fracture or subluxation. No destructive osseous lesions. Soft tissues are unremarkable. CT/Abdomen/Pelvis without Cont IMPRESSION: 1. Air-filled dilated loop of small bowel in the mid to left upper abdomen which is poorly delineated but measures up to 4.5 cm in width. Bowel is poorly defined without oral or IV contrast. If clinical concerns for developing obstruction, CT examination with oral and IV contrast is recommended. 2. Stable hernia repair postoperative changes. 3. Cholelithiasis. No CT findings of cholecystitis. Electronically Signed: Geoffrey Palmer, at 10:02 EDT ,
--- NOTE | 2022-04-23 09:04 | EX.ED.DYSGE1 ---
HPI History of Present Illness Chief Complaint: Abd Pain Informant: patient Onset/Context/Timing Onset: Today Current Severity: Moderate Maximum Severity: Moderate Narrative Narrative: Patient presents secondary to umbilical pain. He had an umbilical hernia repair approximately [address] Zambrano. Patient states he felt well yesterday but woke this morning with pain around his umbilicus that reminds him of his prior hernia. No fever or chills. He did have bowel movement this morning. PFSH PFSH Medical History Abdominal pain Arthritis Back pain Neck pain Home Medications meloxicam 15 mg PO DAILY 04/23/22 [History Last Taken Unknown] Allergy/AdvReac Type Severity Reaction Status Date / Time Penicillins Allergy Hives Verified 04/23/22 08:54 Family History Father Asthma Heart disease Sister Bleeding disorder Surgical History history varicose vein ligation shaft of penis Status post hernia repair Social History Smoking Status: Current every day smoker tobacco type: e-cigarettes alcohol intake: current alcohol intake frequency: 0-2 drinks per day Alcohol type: beer details: Drinks beer daily substance use type: does not use ROS ROS ED Constitutional Constitutional ED: Denies chills or fever(s) Eyes Eyes: Denies change in vision ENT ENT ED: Denies sore throat Cardiovascular Cardiovascular: Denies chest pain Respiratory/Chest Respiratory/Chest: Denies cough or dyspnea Gastrointestinal Gastrointestinal: Reports abdominal pain; Denies diarrhea, nausea or vomiting Genitourinary Genitourinary ED: Denies dysuria Musculoskeletal Musculoskeletal: Denies back pain Integumentary Denies rash Neurologic Neurologic: Denies headache(s) or weakness Allergic/Immunologic Allergic/Immunologic ED: Denies urticaria EXAM Physical Exam Const Vital Signs: 04/23/22 08:54 Temperature 98.4 F Temperature Source Temporal Pulse Rate 55 L Respiratory Rate 14 Blood Pressure 143/90 H Blood Pressure Mean 107 Pulse Ox 99 Oxygen Delivery Method Room Air Positive well nourished and well developed General Appearance ED: well developed HEENT Reports normocephalic and head/scalp atraumatic Eyes PERRL and EOMs intact bilaterally Neck supple Chest Wall inspection of chest normal and palpation of chest normal Resp normal respiratory effort and clear to auscultation bilaterally Cardio regular rate and regular rhythm GI Auscultation: hypoactive bowel sounds Palpation: soft and tender periumbilical Back/Spine no CVA tenderness Extremity normal to inspection Neuro oriented x3 and no sensory deficits noted Sensorium / Orientation: alert Motor Exam: strength 5/5 throughout Psych mental status grossly normal Skin no rashes or lesions noted MDM MDM MDM Narrative Medical decision making narrative: Patient is given Naprosyn for pain. CT flank ordered. Radiography Diagnostic Testing: Clinical Impression(s) from Imaging Studies Abdomen/Pelvis CT 04/23/22 09:00 IMPRESSION: 1. Air-filled dilated loop of small bowel in the mid to left upper abdomen which is poorly delineated but measures up to 4.5 cm in width. Bowel is poorly defined without oral or IV contrast. If clinical concerns for developing obstruction, CT examination with oral and IV contrast is recommended. 2. Stable hernia repair postoperative changes. 3. Cholelithiasis. No CT findings of cholecystitis. Electronically Signed: Geoffrey Palmer, at 10:02 EDT , Treatment and Re-Evaluation Narrative: CT flank reveals stable hernia repair site. There are some dilated small bowel loops in the left upper abdomen which could be normal versus concern for early obstruction. Patient is had multiple bowel movements yesterday and this morning. I did advise him to follow a bland diet and watch for ensuring he is passing gas/having bowel movements. If this changes he is to return for repeat abdominal exam. Discharge Plan Triage Chief Complaint: Abd Pain ED Provider: Bety Boyd Dx/Rx/DC Orders Clinical Impression: Abdominal wall pain Instructions: ED Abdominal Pain Unkn Cause Male... Prescriptions: No Action meloxicam 15 mg tablet 15 mg PO DAILY RF: 0 Primary Care Provider: Jonn Gonzalez Referrals: Jonn Gonzalez MD [Primary Care Provider] - 1 Week if not improving Disposition Disposition: Home, Self Care
[2022-04-23] MEDS: Naproxen 500 MG Tablet PO (09:08)
[2022-04-23 10:19] VITALS: PULSE 57; RESP 16; O2SAT 98
== END 2022-04-23 10:20 | disposition home or self-care (01) ==
PROVIDERS: Emergency Provider Emergency Medicine; PCP Family Medicine; Visit Provider Emergency Medicine
DX: R10.9 Unspecified abdominal pain (principal); F17.290 Nicotine dependence, other tobacco product, uncomplicated
CPT/HCPCS: 74176; 99283

== ENCOUNTER 2023-04-29 09:34 | Emergency (ER) | payer MEDICAID, SELFPAY ==
[2023-04-29 09:35] VITALS: BP 137/96; PULSE 55; RESP 16; TEMP 36.9; O2SAT 99; BMI 28.0
--- NOTE | 2023-04-29 10:05 | RAD_ITS ---
INDICATION: chest pain EXAMINATION/TECHNIQUE: X-RAY - XR Chest 1 View COMPARISON: FINDINGS: LINES/DEVICES: None. LUNGS: No consolidation, edema or effusion. No pneumothorax. MEDIASTINUM AND CARDIOVASCULAR STRUCTURES: Cardiac silhouette not enlarged. Central airways and mediastinal contour are unremarkable. BONES AND SOFT TISSUES: Unremarkable. RAD/Chest 1 View (Portable) IMPRESSION: No radiographic evidence of acute cardiopulmonary disease. Electronically Signed: Jenn Garcia MD at 10:47 EDT ,
--- NOTE | 2023-04-29 10:05 | ED.VIS.CHEST ---
HPI History of Present Illness Chief Complaint: Chest Pain Informant: patient Narrative Narrative: Patient presents with chest pain. Patient states he felt fine this morning and over the last week. He was driving into work. About 7 AM this morning got pain on the left side of his chest. It seemed to radiate toward the left side of the base of his neck. He felt just slightly short of breath but it did not hurt to take a deep breath. No coughing. No nausea vomiting diaphoresis lightheadedness numbness tingling or headache. He has not had symptoms like this before. He has no knowledge of anything he could have done to hurt the area but it does hurt somewhat to move. No recent travel surgery immobilization personal or family history of DVT or PE. He did have a tibial nerve surgery down near his ankle a little over 4 months ago. But that was less than an hour procedure. He has never had leg swelling or pain afterwards. He quit smoking about a year ago. He does occasionally vape. His father had a heart attack in his mid to late 30s. This patient has never had diabetes blood pressure or high cholesterol. He has never had any heart disease. [facility] Medical History Abdominal pain Arthritis Back pain Neck pain Home Medications meloxicam 15 mg tablet 15 mg PO DAILY 04/23/22 [History Last Taken Unknown] Allergy/AdvReac Type Severity Reaction Status Date / Time Penicillins Allergy Hives Verified 04/29/23 09:34 Family History Father Asthma Heart disease Sister Bleeding disorder Surgical History history varicose vein ligation shaft of penis Status post hernia repair Social History Smoking Status: Current every day smoker tobacco type: e-cigarettes alcohol intake: current alcohol intake frequency: 0-2 drinks per day Alcohol type: beer details: Drinks beer daily substance use type: does not use ROS ROS ED ROS Narrative A complete review of systems was performed and is negative except as documented in the history of present illness. Some specific details below. Constitutional: No recent fevers or chills. No malaise. He has not felt ill recently. EYE: No discharge, visual complaints, or pain. ENT: No difficulty swallowing. No swelling. No pain. No reflux symptoms. CV: See history of present illness. Respiratory: See history of present illness. GI: No abdominal pain. No nausea vomiting diarrhea. No blood in stool. : No frequency dysuria or hematuria. Musculoskeletal: No recent trauma. No pains. No swelling. Skin: No rash. Nondiaphoretic. Neuro: No weakness or numbness. Endocrine: No polyuria or polydipsia. EXAM Physical Exam Narrative Exam Narrative: CONSTITUTIONAL: Patient is nontoxic in appearance. The patient looks comfortable. Work of breathing looks normal. HEENT: No notable trauma. Mucous membranes moist. No sinus tenderness. No indication of pain with swallowing. EYES: No conjunctival injection. No proptosis. NECK:No JVD. No stridor. CARDIOVASCULAR: Regular rate. Regular rhythm. No notable murmur. No JVD. Peripheral pulses are equal x4. No peripheral mottling. RESPIRATORY: No respiratory distress. Breathing is unlabored. No wheezes. No rhonchi. No rales. No pain with a deep breath. He does have some reproducible chest wall tenderness along the left parasternal area up to about the clavicle. But there are no skin changes swelling erythema warmth or lesions. GASTROINTESTINAL: Not distended. Bowel sounds are normal. No tenderness. No guarding. No rebound. No palpable mass. No bruit is heard. GENITOURINARY: No tenderness over the bladder. No CVA tenderness. MUSCULOSKELETAL: Atraumatic. No peripheral edema. No cord. No tenderness along the deep venous system. No asymmetry. No distended veins. NEUROLOGICAL: Patient is alert and appropriate. No focal deficit noted. SKIN: No noted rashes. No diaphoresis. PSYCHIATRIC: Patient is calm. Mood is appropriate. Const Vital Signs: 04/29/23 09:35 04/29/23 09:38 04/29/23 10:14 Temperature 98.5 F Temperature Source Temporal Pulse Rate 55 L Respiratory Rate 16 Respiratory Effort Normal Non-Labored Blood Pressure 137/96 H Blood Pressure Mean 109 Pulse Ox 99 Oxygen Delivery Method Room Air Room Air 04/29/23 11:05 04/29/23 13:16 Temperature Temperature Source Pulse Rate 65 64 Respiratory Rate 14 16 Respiratory Effort Blood Pressure 125/92 H 121/84 H Blood Pressure Mean 103 Pulse Ox 96 97 Oxygen Delivery Method Room Air MDM MDM MDM Narrative Medical decision making narrative: Patient CBC shows no marked abnormality other than mildly low white count. Patient's electrolytes show no marked abnormality. Patient's troponin is negative at 3. Patient's repeat troponin is unmeasurable and less than 3. My independent interpretation of the patient's single view chest x-ray shows no acute process. Final reading is similar. Patient's symptoms are gone now. He did have reproducible symptoms with palpation. He is PERC negative. I think he is appropriate and safe for discharge. We did discuss reasons to return and follow-up recommended. Lab Data Attestation: I reviewed the patient's lab results. Labs: Laboratory Results - last 24 hr 04/29/23 04/29/23 04/29/23 09:44 09:44 12:11 WBC 3.8 L RBC 5.03 Hgb 15.4 Hct 45.2 MCV 89.9 MCH 30.6 MCHC 34.1 RDW Std Deviation 45.1 H RDW Coeff of Abraham 13.6 Plt Count 242 MPV 9.9 Immature Gran % (Auto) 0.300 Neut % (Auto) 37.0 L Lymph % (Auto) 43.4 H [place] % (Auto) 11.1 H Eos % (Auto) 5.6 H Baso % (Auto) 2.6 H Absolute Neuts (auto) 1.4 L Absolute Lymphs (auto) 1.64 Nucleated RBC % 0 Sodium 141 Potassium 3.7 Chloride 108 H Carbon Dioxide 25.0 Anion Gap 8 BUN 5 L Creatinine 0.83 Estim Creat Clear Calc 111.02 Est GFR (MDRD) Af Amer 130 Est GFR (MDRD) Non-Af 107 BUN/Creatinine Ratio 6.0 L Glucose 101 Calcium 9.0 Troponin I High Sens 3 < 3 L Radiography Diagnostic Testing: Clinical Impression(s) from Imaging Studies Chest X-Ray 04/29/23 10:05 IMPRESSION: No radiographic evidence of acute cardiopulmonary disease. Electronically Signed: Jenn Garcia MD at 10:47 EDT , EKG Initial EKG: Comments: My independent interpretation the patient's EKG done for chest pain shows a sinus rhythm with slightly bradycardic rate at 55. No notable ST elevation or depression. Minimal J-point elevation anteriorly. But still concave segments. NC interval, QRS duration and QTc are normal. This EKG is actually quite similar to a prior one from 03 Apr 2020. Discharge Plan Triage Chief Complaint: Chest Pain ED Provider: Winston Santana Dx/Rx/DC Orders Clinical Impression: Chest pain Instructions: ED Chest Pain, Uncertain Cause Prescriptions: No Action meloxicam 15 mg tablet 15 mg PO DAILY Label Comments: take 1 tablet by mouth once daily if needed for JOINT PAIN Primary Care Provider: Care Physician,No Primary Referrals: Bret,Beverly, [Med Staff - Key Account Manager] - 3-5 Days Care Physician,No Primary [Primary Care Provider] - Disposition Disposition: Home, Self Care Discharge Date/Time: 04/29/23 13:17
[2023-04-29 10:09] LABS: Absolute Lymphocyte Count 1.64 X10^3/uL (0.83-4.51); Absolute Neutrophil Count 1.4 X10^3/uL (2.0-7.7); Basophil% 2.6 % (0-1); Eosinophil# 0.21 X10^3/uL; Eosinophils% 5.6 % (0-5); Hematocrit 45.2 % (40-54); Hemoglobin 15.4 g/dL (13.0-16.5); Lymphocyte # 1.64 X10^3/ul (0.83-4.51); Lymphocyte % 43.4 % (19-41); Mean Corp Hgb Conc 34.1 g/dL (32-36); Mean Corpuscular Hgb 30.6 pg (27.0-32.0); Mean Corpuscular Volume 89.9 fL (80-94); Mean Platelet Vol. 9.9 fl (6.2-12.0); Monocyte# 0.42 X10^3/uL; Monocyte% 11.1 % (0-10); NRBC Flagged by Analyzer 0 % (0-5); Platelet Count 242 K/mm3 (150-450); RBC Distribution Width CV 13.6 % (11.6-14.6); RBC Distribution Width SD 45.1 fl (35.1-43.9); Red Blood Count 5.03 M/mm3 (4.6-6.2); White Blood Count 3.8 K/mm3 (4.4-11.0)
[2023-04-29] MEDS: Aspirin 81 MG TAB.CHEW 324 MG PO (10:11)
[2023-04-29 10:25] LABS: Anion Gap 8 (5-15); BUN 5 mg/dL (7-18); Chloride 108 mmol/L (98-107); Creatinine, Serum 0.83 mg/dL (0.70-1.30); EST Glomerular Filtration Rate 107 mL/min (>60); Est Glom Filt Rate - Afr Amer 130 mL/min (>60); Estimated Creatinine Clearance 111.02 ml/min; Glucose 101 mg/dL (74-106); Potassium 3.7 mmol/L (3.5-5.1); Sodium Level 141 mmol/L (136-145); Troponin-I HS (w/2H Reflex) 3 pg/mL (3.0-78.0)
--- NOTE | 2023-04-29 10:46 | CM.ED ---
Social Work Note Referral Source: case find Referral Reason: no PCP SW met with patient and introduced herself and role as [facility] [employer]. Patient lying on hospital bed and agreeable to speak with SW. SW inquired about patient's insurance and current PCP. Patient verified insurance and reports no current PC as his previous PCP retired. SW provided patient with a list of local PCPs in network with patient's insurance and accepting new patients. Patient was receptive towards list and voiced no other needs. SW remains available if needs arise. Lesly Landers [employer] ROUNDER, SID
[2023-04-29 11:05] VITALS: BP 125/92; PULSE 65; RESP 14; O2SAT 96
[2023-04-29 12:06] LABS: Reflex Troponin-HS? (from REC) Y
[2023-04-29 12:42] LABS: Troponin-I HS < 3 pg/mL (3.0-78.0)
[2023-04-29 13:16] VITALS: BP 121/84; PULSE 64; RESP 16; O2SAT 97
== END 2023-04-29 13:17 | disposition home or self-care (01) ==
PROVIDERS: Emergency Provider Emergency Medicine; Visit Provider Emergency Medicine
DX: R07.9 Chest pain, unspecified (principal); F17.290 Nicotine dependence, other tobacco product, uncomplicated
CPT/HCPCS: 36415; 71045; 80048; 84484; 85025; 93005; 99285; A4216